=== PATIENT | male | born 1990 | race Two or more races ===

== ENCOUNTER 2023-11-23 08:08 | Emergency (ER) | payer OTHER ==
[~2023-11-23] VITALS: Ht 188 cm; Wt 105.2 kg
[2023-11-23 10:55] LABS: HEMATOCRIT 45.8 % (39.0-48.0); HEMOGLOBIN 15.7 g/dL (13-16.00); MEAN CELL VOLUME 88.2 fL (80.0-100.00); MEAN CORPUSCULAR HEMOGLOBIN 30.1 pg (27.00-32.0); MEAN CORPUSCULAR HGB CONC 34.2 g/dl (32.0-36.0); PLATELET COUNT 285 K/uL (150-450); RED BLOOD COUNT 5.19 M/uL (4.00-6.00); RED CELL DISTRIBUTION WIDTH 12.6 % (11.5-14.5)
[2023-11-23 11:20] LABS: ALBUMIN 4.2 gm/dL (3.4-5.0); BILIRUBIN TOTAL 0.52 mg/dL (0.3-1.2); CALCIUM 9.4 mg/dL (8.5-10.1); CREATININE SERUM 0.97 mg/dL (0.70-1.30); GFR 89.13; GLOBULINA 4.4 G/DL (2.4-3.5); POTASSIUM 4.53 mEq/L (3.5-5.1); TOTAL PROTEIN 8.6 gm/dL (6.4-8.2)
[2023-11-23 12:07] LABS: PH,URINE 6.5 (5.0-8.0); URINE APPEARANCE Clear; URINE BILIRRUBIN Negative (NEGATIVE); URINE BLOOD Moderate; URINE COLOR Yellow; URINE GLUCOSE Negative (NEGATIVE); URINE LEUKOCYTE Negative; URINE NITRATE Negative; URINE PROTEIN Negative (NEGATIVE); URINE UROBILINOGEN 0.2 E.U./dl
[2023-11-23 12:08] LABS: URINE BACTERIA 7.5 uL (0.0-1933); URINE RBC 66.8 uL (0.0-20.8); URINE WBC 5.5 uL (0.0-23.2)
[2023-11-23 12:18] LABS: URINE EPITHELIAL CELLS 0.7 uL (0.0-38.8)
[2023-11-23] MEDS ORDERED: CIPRO500 MG PO (12:28)
== END 2023-11-23 12:36 | disposition home or self-care (01) ==
LOC: ER 08:09
PROVIDERS: General Practice
DX: R10.32 Left lower quadrant pain (principal); N39.0 Urinary tract infection, site not specified